=== PATIENT | female | born 1960 | race Two or more races ===

== ENCOUNTER 2023-11-02 13:59 | Outpatient (CLI) | payer BC, MEDICAID ==
[~2023-11-02] VITALS: Ht 152.4 cm; Wt 72.6 kg
[2023-11-02] MEDS ORDERED: NO HOME MEDS (14:43)
[2023-11-02 15:18] LABS: BASOPHILS % (AUTO) 0.5 % (0-1); EOSINOPHILS # (AUTO) 0.1 X10'3 (0-0.9); EOSINOPHILS % (AUTO) 1.2 % (0-6); LYMPHOCYTES # (AUTO) 1.1 X10'3 (1.1-4.8); LYMPHOCYTES % (AUTO) 17.4 % (21-51); MEAN CORPUSCULAR HEMOGLOBIN 22.6 PG (27.0-31.0); MEAN CORPUSCULAR HGB CONC 30.6 g/dL (33.0-36.5); MEAN CORPUSCULAR VOLUME 73.9 FL (78-98); MEAN PLATELET VOLUME 7.7 FL (7.4-10.4); MONOCYTES # (AUTO) 0.6 X10'3 (0-0.9); MONOCYTES % (AUTO) 9.9 % (2-12); NEUTROPHILS # (AUTO) 4.7 X10'3 (1.8-7.7); PRE OP HEMATOCRIT 35.1 % (35.0-45.0); PRE OP PLATELET COUNT 359 X10'3 (140-440); PRE OP WHITE BLOOD COUNT 6.6 10'3 (4.8-10.8); RED BLOOD COUNT 4.75 X10'6 (4.20-5.60)
[2023-11-02 15:24] LABS: PRE OP HEMOGLOBIN 10.8 g/dL (12.0-16.0)
[2023-11-02 15:25] LABS: BILIRUBIN,URINE NEGATIVE (Neg); CLARITY,URINE SLIGHTLY CLOUDY (Clear); COLOR,URINE YELLOW (Yellow); GLUCOSE, URINE NEGATIVE (Neg); KETONES,URINE NEGATIVE (Neg); LEUKOCYTE ESTERASE ,URINE NEGATIVE (Neg); NITRITES, URINE NEGATIVE (Neg); OCCULT BLOOD,URINE NEGATIVE (Neg); PROTEIN,URINE NEGATIVE (Neg); UROBILINOGEN,URINE 0.2 E.U/dL (0.2-1.0)
[2023-11-02 15:26] LABS: UA COLLECTION TYPE CLN CATCH MIDSTREAM
[2023-11-02 15:33] LABS: PRE OP PROTIME 10.5 SECONDS (9.0-12.0)
[2023-11-02 15:37] LABS: HYALINE CASTS >30 /LPF (NEGATIVE); MUCUS STRANDS MANY /LPF (Neg); SQUAMOUS EPITHELIAL CELL,UR MODERATE /LPF (FEW)
[2023-11-02 15:38] LABS: BACTERIA,URINE FEW /HPF (Neg); RBC,URINE 0-2 /HPF (0-2); TRANSITIONAL EPI CELLS,URINE FEW /HPF; WBC,URINE 0-4 /HPF (0-4)
[2023-11-02 15:39] LABS: ALBUMIN 3.6 G/DL (3.4-5.0); ALBUMIN/GLOBULIN RATIO 1.1 (1.1-1.5); ALKALINE PHOSPHATASE 71 IU/L (46-116); BLOOD UREA NITROGEN 14 MG/DL (7-18); BUN/CREATININE RATIO 14.7 (10.0-20.0); CALCIUM 9.2 MG/DL (8.5-10.1); CHLORIDE 110 MMOL/L (99-107); CREATININE 0.95 MG/DL (0.40-0.90); PRE OP ALT 22 U/L (30-65); PRE OP ANION GAP 9 (8-16); PRE OP AST 18 U/L (10-37); PRE OP BILIRUB, TOTAL 0.7 MG/DL (0.0-1.0); PRE OP GLUCOSE 88 MG/DL (70-104); PRE OP POTASSIUM 4.1 MMOL/L (3.4-5.1); PRE OP SODIUM 146 MMOL/L (135-145); TOTAL PROTEIN 6.8 G/DL (6.4-8.2); eGFR 59 ML/MIN
[2023-11-02 15:54] LABS: TEAR DROP CELLS FEW
[2023-11-02 15:56] LABS: ANISOCYTOSIS 2+; MICROCYTOSIS 1+
[2023-11-02 15:58] LABS: SCHISTOCYTES FEW
[2023-11-02 15:59] LABS: PLATELET ESTIMATE NORMAL; POLYCHROMASIA FEW
[2023-11-02 16:00] LABS: ELLIPTOCYTES FEW; HYPOCHROMASIA 1+
[2023-11-15] MEDS ORDERED: tranexamic acid inj. 1,000 MG in normal saline IV soln 100ML IV ONE (05:30)
[2023-11-15] MEDS: famotidine 20mg tablet PO ONE (06:18)
[2023-11-15] MEDS: ringers solution, lacted 1,000 ML IV SCH (06:21)
[2023-11-15] MEDS: cefazolin 2gm/D5W 100mL 100 ML IV ONE (06:23)
[2023-11-15] MEDS ORDERED: ondansetron/PF 4mg/2ml inj IV PRN (07:30)
[2023-11-15] MEDS ORDERED: acetaminophen 325mg tablet PO PRN (07:30)
[2023-11-15] MEDS ORDERED: HYDROcodone/acetaminophen 5mg/325mg tablet PO PRN ×2 (07:30)
[2023-11-15] MEDS ORDERED: naloxone 0.4 mg/ml inj IV PRN (07:30)
[2023-11-15] MEDS ORDERED: potassium cl 20mEq in 1/2 NS 1,000 ML IV SCH (07:30)
[2023-11-15] MEDS ORDERED: bisacodyl 10mg suppository rectal RC PRN (07:30)
[2023-11-15] MEDS ORDERED: magnesium hydroxide 30ml (MOM) UD suspension PO PRN (07:30)
[2023-11-15] MEDS ORDERED: diphenhydrAMINE 25mg capsule PO PRN (07:30)
[2023-11-15] MEDS ORDERED: gelatin sponge, absorbable (Gelfoam 100) sponge TP ONE (07:35)
[2023-11-15] MEDS ORDERED: Thrombin (Bovine) 5,000 unit vial TP ONE (07:35)
[2023-11-15] MEDS ORDERED: vancomycin 1,000mg inj ONE (07:35)
[2023-11-15] MEDS ORDERED: cefazolin 2gm/D5W 100mL 100 ML IV SCH (16:00)
== END 2023-11-02 23:59 | disposition home or self-care (01) ==
LOC: LAB 13:59 → UNDOADMIN 11-15 05:18 → PAS IN 11-15 05:18 → EDSTATUS 11-15 07:30
PROVIDERS: ATTEND Specialist
DX: Z01.818 Encounter for other preprocedural examination (principal); M19.012 Primary osteoarthritis, left shoulder; M25.512 Pain in left shoulder
CPT/HCPCS: 36415; 71046; 80053; 81001; 82948; 85008; 85025; 85610; 85730; 86885; 86900; 86901; 87081; J0690; J3370; J3490; J7120

== ENCOUNTER 2023-12-13 07:48 | Day surgery (SDC) | payer BC, MEDICAID ==
[2023-12-06 14:42] LABS: BASOPHILS % (AUTO) 0.5 % (0-1); EOSINOPHILS % (AUTO) 0.6 % (0-6); LYMPHOCYTES # (AUTO) 1.2 X10'3 (1.1-4.8); LYMPHOCYTES % (AUTO) 16.8 % (21-51); MEAN CORPUSCULAR HEMOGLOBIN 22.9 PG (27.0-31.0); MEAN CORPUSCULAR HGB CONC 31.5 g/dL (33.0-36.5); MEAN CORPUSCULAR VOLUME 72.8 FL (78-98); MEAN PLATELET VOLUME 7.9 FL (7.4-10.4); MONOCYTES # (AUTO) 0.8 X10'3 (0-0.9); MONOCYTES % (AUTO) 10.9 % (2-12); NEUTROPHILS % (AUTO) 71.2 % (42-75); PRE OP HEMATOCRIT 31.1 % (35.0-45.0); PRE OP PLATELET COUNT 301 X10'3 (140-440); RED BLOOD COUNT 4.26 X10'6 (4.20-5.60); RED CELL DISTRIBUTION WIDTH 20.1 % (11.5-14.5)
[2023-12-06 14:45] LABS: PRE OP HEMOGLOBIN 9.8 g/dL (12.0-16.0)
[2023-12-06 14:49] LABS: BILIRUBIN,URINE NEGATIVE (Neg); CLARITY,URINE CLEAR (Clear); COLOR,URINE YELLOW (Yellow); GLUCOSE, URINE NEGATIVE (Neg); KETONES,URINE TRACE mg/dl (Neg); LEUKOCYTE ESTERASE ,URINE NEGATIVE (Neg); NITRITES, URINE NEGATIVE (Neg); OCCULT BLOOD,URINE NEGATIVE (Neg); PROTEIN,URINE NEGATIVE (Neg); UROBILINOGEN,URINE 0.2 E.U/dL (0.2-1.0)
[2023-12-06 14:55] LABS: PRE OP PROTIME 10.5 SECONDS (9.0-12.0)
[2023-12-06 15:06] LABS: ALBUMIN 3.5 G/DL (3.4-5.0); ALBUMIN/GLOBULIN RATIO 1.2 (1.1-1.5); ALKALINE PHOSPHATASE 70 IU/L (46-116); BLOOD UREA NITROGEN 17 MG/DL (7-18); BUN/CREATININE RATIO 16.5 (10.0-20.0); CALCIUM 8.9 MG/DL (8.5-10.1); CHLORIDE 109 MMOL/L (99-107); CREATININE 1.03 MG/DL (0.40-0.90); PRE OP ALT 23 U/L (30-65); PRE OP ANION GAP 11 (8-16); PRE OP AST 20 U/L (10-37); PRE OP BILIRUB, TOTAL 0.7 MG/DL (0.0-1.0); PRE OP GLUCOSE 96 MG/DL (70-104); PRE OP POTASSIUM 3.9 MMOL/L (3.4-5.1); PRE OP SODIUM 146 MMOL/L (135-145); TOTAL CARBON DIOXIDE 25.8 MMOL/L (24-32); TOTAL PROTEIN 6.5 G/DL (6.4-8.2); eGFR 54 ML/MIN
[2023-12-06 15:15] LABS: UA COLLECTION TYPE NON-SPECIFIED
[2023-12-06 15:31] LABS: HYPOCHROMASIA 1+; PLATELET ESTIMATE NORMAL
[2023-12-06 15:32] LABS: ANISOCYTOSIS 3+; ELLIPTOCYTES 1+; MICROCYTOSIS 1+
[2023-12-06 15:33] LABS: TEAR DROP CELLS FEW
[2023-12-13] VITALS (23 sets, daily range): BP systolic 82–135; BP diastolic 31–75; PULSE 61–103; RESP 13–20; TEMP 97.5–98.4; O2SAT 92–99
[~2023-12-13] VITALS: Ht 154.9 cm; Wt 78.5 kg
[2023-12-13] MEDS: tranexamic acid inj. 1,000 MG in normal saline IV soln 100ML IV ONE (05:30)
[~2023-12-13 07:48] MED LIST: NO HOME MEDS
[2023-12-13] MEDS: famotidine 20mg tablet PO ONE (08:22)
[2023-12-13] MEDS: ringers solution, lacted 1,000 ML IV SCH ×2 (08:23→18:02)
[2023-12-13] MEDS ORDERED: tranexamic acid 100mg/ml inj. ONE (08:43)
[2023-12-13] MEDS ORDERED: Thrombin (Bovine) 5,000 unit vial TP ONE (08:44)
[2023-12-13] MEDS ORDERED: gelatin sponge, absorbable (Gelfoam 100) sponge TP ONE (08:44)
[2023-12-13] MEDS ORDERED: magnesium hydroxide 30ml (MOM) UD suspension PO PRN (09:45)
[2023-12-13] MEDS ORDERED: diphenhydrAMINE 25mg capsule PO PRN (09:45)
[2023-12-13] MEDS ORDERED: acetaminophen 325mg tablet PO PRN (09:45)
[2023-12-13] MEDS ORDERED: bisacodyl 10mg suppository rectal RC PRN (09:45)
[2023-12-13] MEDS ORDERED: naloxone 0.4 mg/ml inj IV PRN (09:45)
[2023-12-13] MEDS ORDERED: sevoflurane 250ml liquid IH ONE (09:45)
[2023-12-13] MEDS ORDERED: fentaNYL/PF 50MCG/1 ML 2ML syringe ONE (09:54)
[2023-12-13] MEDS ORDERED: midazolam 1 mg/ML 2ml injection ONE (09:54)
[2023-12-13] MEDS ORDERED: ePHEDrine 50MG/ML INJ. ONE (10:37)
[2023-12-13] MEDS ORDERED: LIDOcaine 2% (20mg/ml) 5ml vial ONE (10:37)
[2023-12-13] MEDS ORDERED: rocuronium 10mg/ml inj IV ONE (10:37)
[2023-12-13] MEDS ORDERED: propofol inj 20 ML IV ONE (10:37)
[2023-12-13] MEDS ORDERED: LIDOcaine 1%/PF 5ML 10 MG/ML VIAL ONE (10:37)
[2023-12-13] MEDS ORDERED: 0.9 % SODIUM CHLORIDE 10 ML VIAL ONE (10:37)
[2023-12-13] MEDS ORDERED: ondansetron/PF 4mg/2ml inj ONE (10:37)
[2023-12-13] MEDS ORDERED: dexamethasone sod phosphate 4mg/ml inj. ONE (10:37)
[2023-12-13] MEDS ORDERED: ROPIVAcaine 0.5% (5mg/ml) 30ml vial ONE (10:37)
[2023-12-13] MEDS: vancomycin 1,000mg inj ONE (10:40)
[2023-12-13] MEDS ORDERED: morphine 2 MG/ML inj. syringe IV PRN (10:55)
[2023-12-13] MEDS ORDERED: hydrALAZINE 20mg/ml inj. IV PRN (10:55)
[2023-12-13] MEDS ORDERED: morphine 4 MG/ML inj SYRINge IV PRN (10:55)
[2023-12-13] MEDS ORDERED: proCHLORperazine 10 MG/2 ml inj IV PRN (10:55)
[2023-12-13] MEDS ORDERED: ondansetron/PF 4mg/2ml inj IV PRN (10:55)
[2023-12-13] MEDS ORDERED: meperidine/PF 25mg/ml syringe IV PRN ×3 (10:55)
[2023-12-13] MEDS ORDERED: labetalol 20mg/4ml (5mg/ml) syringe IV PRN (10:55)
[2023-12-13] MEDS: methylene blue (5mg/ml) 50mg/10ml ampul IV ONE (11:06)
[2023-12-13] MEDS: cefazolin 2gm/D5W 100mL 100 ML IV SCH (18:01)
[2023-12-13] MEDS: potassium cl 20mEq in 1/2 NS 1,000 ML IV SCH (18:02)
[2023-12-13] MEDS: HYDROcodone/acetaminophen 5mg/325mg tablet PO PRN (20:44)
[2023-12-14] VITALS: BP 128/53; PULSE 91; RESP 17; O2SAT 96
[2023-12-14] MEDS: cefazolin 2gm/D5W 100mL 100 ML IV SCH (01:25)
[2023-12-14 06:00] VITALS: BP 119/56; PULSE 70; RESP 14; TEMP 97.7; O2SAT 97
[2023-12-14] MEDS: acetaminophen 1,000mg/100ml IV 100 ML IV ONE (07:02)
[2023-12-14 07:26] LABS: BASOPHILS % (AUTO) 0.2 % (0-1); EOSINOPHILS % (AUTO) 0 % (0-6); HEMATOCRIT 26.2 % (35.0-45.0); HEMOGLOBIN 8.3 g/dl (12.0-16.0); LYMPHOCYTES # (AUTO) 1.1 X10'3 (1.1-4.8); LYMPHOCYTES % (AUTO) 9.5 % (21-51); MEAN CORPUSCULAR HEMOGLOBIN 22.8 PG (27.0-31.0); MEAN CORPUSCULAR HGB CONC 31.6 g/dL (33.0-36.5); MEAN CORPUSCULAR VOLUME 72.1 FL (78-98); MEAN PLATELET VOLUME 7.9 FL (7.4-10.4); MONOCYTES # (AUTO) 1.3 X10'3 (0-0.9); MONOCYTES % (AUTO) 11.8 % (2-12); NEUTROPHILS # (AUTO) 8.7 X10'3 (1.8-7.7); NEUTROPHILS % (AUTO) 78.5 % (42-75); PLATELET COUNT 280 X10'3 (140-440); RED BLOOD COUNT 3.63 X10'6 (4.20-5.60); RED CELL DISTRIBUTION WIDTH 19.4 % (11.5-14.5); WHITE BLOOD COUNT 11.1 X10'3 (4.5-11.0)
[2023-12-14 07:43] LABS: ANION GAP 10 (8-16); CHLORIDE 108 MMOL/L (99-107); POTASSIUM 4.1 MMOL/L (3.5-5.1); SODIUM 141 MMOL/L (135-145); TOTAL CARBON DIOXIDE 22.9 MMOL/L (24-32)
[2023-12-14] MEDS: HYDROcodone/acetaminophen 5mg/325mg tablet PO PRN (07:48)
[2023-12-14] MEDS: cefazolin 2gm/D5W 100mL 100 ML IV ONE (09:59)
[2023-12-14 10:00] VITALS: BP 112/55; PULSE 68; RESP 18; TEMP 98.3; O2SAT 95
[2023-12-14] MEDS: ondansetron/PF 4mg/2ml inj IV PRN (10:16)
[2023-12-14 14:28] VITALS: RESP 16
== END 2023-12-14 14:35 | disposition home or self-care (01) ==
LOC: PAS 07:48 → ORTHO 4S 09:52 → EDSTATUS 11:00 → PAS 12-14 14:35
PROVIDERS: ATTEND Specialist
DX: M19.012 Primary osteoarthritis, left shoulder (principal); M75.122 Complete rotator cuff tear or rupture of left shoulder, not specified as traumatic; J45.909 Unspecified asthma, uncomplicated; F41.9 Anxiety disorder, unspecified; F32.A Depression, unspecified; Z90.710 Acquired absence of both cervix and uterus; Z90.89 Acquired absence of other organs; Z98.890 Other specified postprocedural states
CPT/HCPCS: 23472; 24340; 36415; 64415; 73030; 80051; 80053; 81003; 82948; 85025; 85610; 85730; 86885; 86900; 86901; 87081; 97110; 97161; 97530; C1713; C1716; J0690; J1100; J2250; J2405; J2704; J2710; J2795; J3010; J3370; J3480; J3490; J7030; J7040; J7120; Q9968; Z7506; Z7508; Z7512; 76000; 85008; A4565; A4615; A4618; A6449; A6455; A7000; G0378